=== PATIENT | female | born 2000 | race African-American/Black ===

== ENCOUNTER 2021-03-25 03:24 | Emergency (ER) | payer MEDICAID ==
[~2021-03-25] VITALS: Ht 167.6 cm; Wt 66.0 kg
[2021-03-25 03:34] VITALS: BP 107/62
[2021-03-25 04:14] LABS: CLARITY URINE CLEAR (CLEAR); COLOR URINE YELLOW (YELLOW); KETONES URINE TRACE (NEGATIVE); LEUKOCYTE ESTERASE URINE NEGATIVE (NEGATIVE); NITRITE URINE NEGATIVE (NEGATIVE); OCCULT BLOOD URINE NEGATIVE (NEGATIVE); PROTEIN URINE NEGATIVE (NEGATIVE); SPECIFIC GRAVITY URINE 1.033 (1.005-1.030)
[2021-03-27 04:09] LABS: NEISSERIA GONORRHOEAE NAA Negative (Negative)
== END 2021-03-25 04:23 | disposition home or self-care (01) ==
LOC: ER 03:24
DX: Z11.3 Encounter for screening for infections with a predominantly sexual mode of transmission (principal)
CPT/HCPCS: 81003; 81025; 87491; 87591; 99283